=== PATIENT | female | born 2000 | race Caucasian/White ===

== ENCOUNTER 2023-11-23 10:47 | Outpatient (AMB) | payer OTHER, SELFPAY ==
--- NOTE | 2023-11-23 10:59 | A.OFFVIS_ITS ---
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 Milled Rubber Tender Required: No Accompanied by: Self / Same As Patient Allergies shellfish derived Allergy (Verified 11/23/23 11:06) Vomiting Medication List - Last Reconciled 11/23/23 by Lewis Yeboah MD enalapril-hydrochlorothiazide 5-12.5 mg 1 tab PO DAILY famotidine 20 mg PO DAILY fluoxetine 20 mg PO DAILY omeprazole 20 mg PO DAILY HPI HPI Comments History of Present Illness Details This is a 23-year-old female who presents for evaluation of joint pain. The condition started about a year ago. She has been having bilateral shoulder pain and stiffness, more severe on the left. She has morning stiffness of her shoulders lasting a few hours. She also has bilateral hip pain, the pain is on the outside of her hip as well as the groin area. This also lasts a few hours. Her shoulders are knees pop and crack. She denies any history of joint dislocations. Symptoms improved with ibuprofen 600 mg daily. She was also prescribed prednisone 40 mg daily for about 5 days which were at least 70% helpful. She was evaluated by a specialist and was found to have an old healed left clavicular fracture, MRI arthrogram left shoulder showed some capsular thickening but no synovitis or tendon tear. She was referred to PT which helped, then the pain recurred when when PT was completed. She has not noticed any swollen joints. Denies any skin rashes she is unaware of any family history of an autoimmune rheumatic disease. Denies history of DVT/PE. Denies history suggestive of uveitis or IBD. [facility] Medical History Pain in joint, multiple sites Migraine Moderate recurrent major depression Essential hypertension GERD (gastroesophageal reflux disease) Leukocytosis Surgical History H/O wisdom tooth extraction Family History Mother Thyroid disease Father Anxiety Paternal Grandmother Gout Hypertension Maternal Grandmother Lung tumor Paternal Grandfather Leukemia Maternal Grandfather COPD (chronic obstructive pulmonary disease) Maternal Uncle Multiple sclerosis Social History Alcohol intake: current Alcohol intake frequency: holidays/special occasions only Patient Tobacco Use Status: Never used Tobacco Current occupational status: employed 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 Female Reproductive History Menstrual Total pregnancies: 0 Review of Systems Const Reports fatigue and Reports headache(s) Eyes Reports itchy eyes ENT Reports dizziness and Reports headache(s) GI Reports heartburn Reports nocturia and Reports vaginal dryness Musc Reports arthralgias, Reports limited range of motion and Reports stiffness Skin/Breast Denies rash Neuro Reports dizziness and Reports headache(s) Psych Reports abnormal sleep pattern, Reports anxiety and Reports depression Endo Reports fatigue Aller/Immun Reports itchy eyes Physical Exam Vital Signs: Last Vital Signs Pulse 90 11/23/23 11:04 BP 124/70 11/23/23 11:04 Pulse Ox 98 11/23/23 11:04 Oxygen Delivery Method Room Air 11/23/23 11:04 BMI result Body Mass Index 41.9 Const General: cooperative, healthy appearing and comfortable Nutritional Appearance: obese morbidly obese Orientation/consciousness: patient oriented x3 Limitations: no limitations HEENT Head: Yes normocephalic and Yes atraumatic Mouth: moist mucous membranes Resp Effort & Inspection: normal respiratory effort and able to speak in complete sentences Auscultation: clear to auscultation bilaterally Cardio Rate: regular rate Rhythm: regular rhythm GI Palpation (GI): Soft to palpation and nontender Skin General skin exam: no rashes or lesions noted Neuro General: patient oriented x3 Extrem Other: No active synovitis both hands, wrists Normal range of motion of both elbows without pain Normal range of motion of shoulders without pain Negative empty can test bilaterally Negative speed's test bilaterally Normal nailfold capillaroscopy Bilateral groin pain with hip manipulation No knee pain with full flexion and extension bilaterally No ankle swelling or tenderness bilaterally No trochanteric bursa area tenderness Negative Fabere test Brenda test 10-14 cm Mild hyperextension of both knees Painful unable to put both palms on the floor No hyperextensible elbows Results Reviewed Results Reviewed: Labs 09/2023 WBC 13.45? ?platelets 427 (<369) BRENNAN negative? RF (positive than negative ??!) LYME SCREEN NEGATIVE CRP 15.4 (<9.0) ESR 18 TSH 2.71 Assessment & Plan Assessment & Plan (1) Pain in joint, multiple sites: Code(s): M25.50 - Pain in unspecified joint Plan: This is a 23-year-old female who presents for evaluation of multiple joint pain and stiffness. Symptoms improved with prednisone taper. Recurred when prednisone was discontinued. Will order comprehensive serology to screen for underlying autoimmune rheumatic disease. Check x-rays of involved joints. Follow-up in about 4 weeks Plan I spent 47 minutes reviewing patient's chart, evaluating patient, ordering diagnostic workup, counseling patient and documenting in the chart Orders: Orders Comprehensive Met. Panel Today M06.9 - Rheumatoid arthritis, unspecified C Reactive Protein Today M06.9 - Rheumatoid arthritis, unspecified Immunofixation Pnl, Serum Today M06.9 - Rheumatoid arthritis, unspecified Protein Electrophoresis, Serum Today M06.9 - Rheumatoid arthritis, unspecified Cyclic Citrullinated Peptide Today M06.9 - Rheumatoid arthritis, unspecified HLA B27 Today M45.9 - Ankylosing spondylitis of unspecified sites in spine Anti DNA DS Antibody Today M32.9 - Systemic lupus erythematosus, unspecified Complement C3 Today M32.9 - Systemic lupus erythematosus, unspecified UA w Microscopic Today M32.9 - Systemic lupus erythematosus, unspecified XR lumbar spine 4V min Today M25.50 - Pain in unspecified joint Complete Blood Count Auto Diff Today M06.9 - Rheumatoid arthritis, unspecified Hepatitis A,B,C Profile Today Z11.59 - Encounter for screening for other viral diseases T Spot TB Today Z11.7 - Encounter for testing for latent tuberculosis infection Rheumatoid Factor Today M06.9 - Rheumatoid arthritis, unspecified BRENNAN Reflex Titer and Pattern Today M32.9 - Systemic lupus erythematosus, u nspecified Anti Extractable Nuclear Ag Today M32.9 - Systemic lupus erythematosus, unspecified Complement C4 Today M32.9 - Systemic lupus erythematosus, unspecified Erythrocyte Sedimentation Rate Today M32.9 - Systemic lupus erythematosus, unspecified DNA Double Stranded-Crithidia Today M32.9 - Systemic lupus erythematosus, unspecified Protein Creatinine Ratio, Ur Today M32.9 - Systemic lupus erythematosus, unspecified Sjogren's Antibodies Today M32.9 - Systemic lupus erythematosus, unspecified XR hip LT min 2V Today M25.50 - Pain in unspecified joint XR hip RT min 2V Today M25.50 - Pain in unspecified joint XR sacroiliac joint min 3V Today M25.50 - Pain in unspecified joint Coding Level of Care Code New Pt Level 4 (45732) Diagnoses Pain in joint, multiple sites M25.50
[2023-11-23 11:04] VITALS: BP 124/70; PULSE 90; O2SAT 98; BMI 41.9
== END 2023-11-23 11:37 | disposition home or self-care (01) ==
PROVIDERS: PCP Family Medicine; Referring Provider Family Medicine; Visit Provider Student in an Organized Health Care Education/Training Program
DX: M25.50 Pain in unspecified joint (principal)
CPT/HCPCS: 99204

== ENCOUNTER 2023-11-23 10:47 | Outpatient (REF) | payer OTHER, SELFPAY ==
--- NOTE | ~2023-11-23 | XR_ITS ---
EXAMINATION: XR HIP, RIGHT XR HIP, LEFT CLINICAL INFORMATION: Pain in the hips. COMPARISON: None TECHNIQUE: AP and frog-leg lateral views of each hip. FINDINGS: RIGHT HIP: No fracture. Alignment is anatomic. Hip joint space is maintained. Soft tissues are unremarkable. LEFT HIP: No fracture. Alignment is anatomic. Hip joint space is maintained. Soft tissues are unremarkable. XR/XR hip LT min 2V IMPRESSION: Normal hip radiographs.
--- NOTE | ~2023-11-23 | XR_ITS ---
EXAMINATION: XR HIP, RIGHT XR HIP, LEFT CLINICAL INFORMATION: Pain in the hips. COMPARISON: None TECHNIQUE: AP and frog-leg lateral views of each hip. FINDINGS: RIGHT HIP: No fracture. Alignment is anatomic. Hip joint space is maintained. Soft tissues are unremarkable. LEFT HIP: No fracture. Alignment is anatomic. Hip joint space is maintained. Soft tissues are unremarkable. XR/XR hip RT min 2V IMPRESSION: Normal hip radiographs.
--- NOTE | ~2023-11-23 | XR_ITS ---
EXAMINATION: XR LUMBAR SPINE XR SI JOINTS CLINICAL INFORMATION: M25.50 - Pain in unspecified joint Additional Information: PT states pain in lower back and hips COMPARISON: None. TECHNIQUE: Five views of the lumbosacral spine. 3 views of the SI joints FINDINGS: Lumbar spine: Vertebral body heights are normal. No fracture or spondylolisthesis. Intervertebral disc heights are maintained without significant degenerative disc disease. Bone mineralization is normal. Soft tissues are unremarkable. SI joints: Subtle osteoarthritis is suspected in the SI joints characterized by articular sclerosis. No erosions are identified. Bone mineralization is normal. Hip joints are unremarkable. No acute osseous abnormalities. IUD is present in the central pelvis. XR/XR lumbar spine 4V min IMPRESSION: 1. No acute osseous abnormalities in the lumbar spine. 2. 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 No erosions.
--- NOTE | ~2023-11-23 | XR_ITS ---
EXAMINATION: XR LUMBAR SPINE XR SI JOINTS CLINICAL INFORMATION: M25.50 - Pain in unspecified joint Additional Information: PT states pain in lower back and hips COMPARISON: None. TECHNIQUE: Five views of the lumbosacral spine. 3 views of the SI joints FINDINGS: Lumbar spine: Vertebral body heights are normal. No fracture or spondylolisthesis. Intervertebral disc heights are maintained without significant degenerative disc disease. Bone mineralization is normal. Soft tissues are unremarkable. SI joints: Subtle osteoarthritis is suspected in the SI joints characterized by articular sclerosis. No erosions are identified. Bone mineralization is normal. Hip joints are unremarkable. No acute osseous abnormalities. IUD is present in the central pelvis. XR/XR sacroiliac joint min 3V IMPRESSION: 1. No acute osseous abnormalities in the lumbar spine. 2. 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 No erosions.
[2023-11-23 12:01] LABS: MANUAL DIFF FLAG NO
[2023-11-23 12:20] LABS: Basophils Percent Auto 0.3 % (0-2); Eosinophils Absolute Auto 0.1 X10*3/uL (0.0-0.4); Eosinophils Percent Auto 0.7 % (0-4); Hematocrit 41.5 % (37.0-47.0); Hemoglobin 13.8 g/dl (12.0-16.0); Imm Gran Abs Auto 0.04 X10*3/uL (0.00-0.03); Imm Gran Pct Auto 0.4 % (0.0-0.4); Lymphocytes Absolute Auto 3.7 X10*3/uL (1.2-4.9); Lymphocytes Percent Auto 34.7 % (20-40); Mean Corpuscular HGB Conc 33.3 g/dl (31.0-35.0); Mean Corpuscular Hemoglobin 27.8 pg (27.0-33.0); Mean Corpuscular Volume 83.7 fL (80.0-98.0); Mean Platelet Volume 8.6 fL (9.4-12.3); Monocytes Absolute Auto 0.6 X10*3/uL (0.1-1.2); Monocytes Percent Auto 5.5 % (2-11); Neutrophils Absolute Auto 6.3 x10*3/uL (2.0-8.3); Neutrophils Percent Auto 58.4 % (45-73); Platelet Count 423 X10*3/uL (160-400); Red Blood Count 4.96 X10*6/uL (4.20-5.50); Red Cell Distribution Width 12.6 % (11.0-16.0); White Blood Count 10.7 X10*3/uL (4.8-10.8)
[2023-11-23 12:49] LABS: Alanine Aminotransferase 17 U/L (0-31); Albumin Level 4.3 g/dL (3.5-5.0); Alkaline Phosphatase 62 U/L (39-117); Anion Gap 10 (12-20); Aspartate Amino Transferase 19 U/L (5-31); Bilirubin Total 0.3 mg/dL (0.0-1.0); Blood Urea Nitrogen 12 mg/dL (9-16); C Reactive Protein 1.12 mg/dL (< or = 0.50); Calcium 9.7 mg/dL (8.4-10.2); Carbon Dioxide 28 mmol/L (22-29); Chloride 106 mmol/L (96-108); Estimated Glomerular Filt Rate > 60; Glucose Random 79 mg/dL (60-115); Potassium 3.7 mmol/L (3.3-5.1); Sodium 140 mmol/L (135-145); Total Protein 7.7 g/dL (6.5-8.0)
[2023-11-23 12:56] LABS: Rheumatoid Factor < 13.0 IU/mL (<15.0)
[2023-11-23 13:00] LABS: Erythrocyte Sedimentation Rate 17 MM/HR (0-20)
[2023-11-23 13:14] LABS: HBS Num1 4.17 mIU/mL (0-7.99); HBc Num1 0.09 S/CO (0.00-0.79); HBsAGNum1 0.28 S/CO (0.00-0.99); Hepatitis A Antibody IgM 0.16 Index (0-0.79); Hepatitis B Core Antibody Nonreactive (Nonreactive); Hepatitis B Surface Antigen Negative (Negative); ~HepC Num1 0.27 S/CO (0.00-0.79); ~Hepatitis A Antibody IgM Nonreactive (Nonreactive); ~Hepatitis B Surface Antibody NONREACTIVE (Nonreactive); ~Hepatitis C Antibody Nonreactive (Nonreactive)
[2023-11-23 13:35] LABS: Appearance Urine Cloudy; Color Urine Yellow; Glucose Urine UA Negative (Negative); Leukocyte Esterase Urine Trace (Negative); Nitrite Urine Negative (Negative); PH 7.5 (5.0-9.0); Specific Gravity - Urine 1.015 (1.005-1.025); UMIC TRIGGER UA YES; Urine Blood Negative (Negative); Urine Ketones Negative (Negative); Urine Protein Negative (Neg-Trace)
[2023-11-23 13:53] LABS: Bacteria Urine 2+ (None Seen); Hyaline Casts Urine 0-2 /LPF (0-2); RBC Urine 0-2 /HPF (0-2)
[2023-11-23 14:17] LABS: Creatinine Urine 46.19 mg/dL; Total Protein Urine Random < 7 mg/dL (<12)
[2023-11-25 06:28] LABS: Complement C3 173 mg/dL (83-193)
[2023-11-25 10:54] LABS: Cyclic Citrullinated Peptide <16 UNITS
[2023-11-25 13:18] LABS: Prot Elec - Albumin 4.4 g/dL (3.8-4.8); Prot Elec - Alpha1 0.3 g/dL (0.2-0.3); Prot Elec - Alpha2 0.8 g/dL (0.5-0.9); Prot Elec - Beta 1 0.5 g/dL (0.4-0.6); Prot Elec - Beta 2 0.3 g/dL (0.2-0.5); Prot Elec - Total Protein 7.3 g/dL (6.1-8.1)
[2023-11-25 19:33] LABS: Anti Nuclear Antibody Screen NEGATIVE (NEGATIVE)
[2023-11-25 23:18] LABS: TS Negative Control Passed; TS Panel A 0; TS Panel B 0; TS Positive Control Passed; TSpotTB Negative (Negative)
[2023-11-26 13:33] LABS: Anti DNA DS Antibody 1 IU/mL; Antibody to SS-A Antigen <1.0 NEG AI (<1.0 NEG); Antibody to SS-B Antigen <1.0 NEG AI (<1.0 NEG); SM/Ribonucleoprotein Ab <1.0 NEG AI (<1.0 NEG); Smith Protein <1.0 NEG AI (<1.0 NEG)
[2023-11-26 18:03] LABS: IgA 164 mg/dL (47-310); IgG 1118 mg/dL (600-1640); IgM 136 mg/dL (50-300)
[2023-11-27 00:19] LABS: HLA B27 Negative (Negative)
[2023-11-28 00:05] LABS: DNAds, Crithidia Antibody Negative (Negative)
== END 2023-11-23 10:48 | disposition home or self-care (01) ==
LOC: HO.LAB 10:47
PROVIDERS: PCP Family Medicine; Referring Provider Family Medicine; Visit Provider Student in an Organized Health Care Education/Training Program
DX: Z11.59 Encounter for screening for other viral diseases (principal); Z11.7 Encounter for testing for latent tuberculosis infection; M06.9 Rheumatoid arthritis, unspecified; M45.9 Ankylosing spondylitis of unspecified sites in spine; M32.9 Systemic lupus erythematosus, unspecified; M25.50 Pain in unspecified joint; Z72.89 Other problems related to lifestyle
CPT/HCPCS: 36415; 72110; 72202; 73502; 80053; 81001; 82570; 82784; 84156; 84165; 85025; 85652; 86038; 86140; 86160; 86200; 86225; 86235; 86255; 86334; 86431; 86481; 86704; 86706; 86709; 86803; 86812; 87340

== ENCOUNTER 2023-12-16 07:48 | Outpatient (AMB) | payer OTHER, SELFPAY ==
--- NOTE | 2023-12-16 07:49 | MHC.OFFVIS ---
Vital Signs 12/16/23 07:50 Height 5 ft 9 in Weight 286 lb 13.142 oz BMI 42.4 BP 132/76 Blood Pressure Location Rt brachial Position Sitting Pulse 90 Pulse Source Pulse Oximeter Pulse Oximetry (%) 95 Oxygen Delivery Method Room Air Intake Visit Reasons: Joint pain Intake Note: Patient last seen 11/23/23 presents today for follow up and test results. Motor Room Controller Required: No Accompanied by: Self / Same As Patient Allergies shellfish derived Allergy (Verified 12/16/23 07:54) Vomiting Medication List - Last Reconciled 12/16/23 by Lewis Yeboah MD enalapril-hydrochlorothiazide 5-12.5 mg 1 tab PO DAILY famotidine 20 mg PO DAILY fluoxetine 20 mg PO DAILY omeprazole 20 mg PO DAILY HPI Comments Details: Patient returns for follow-up after completion of her diagnostic workup. Continues to feel about the same. Initial history: This is a 23-year-old female who presents for evaluation of joint pain. The condition started about a year ago. She has been having bilateral shoulder pain and stiffness, more severe on the left. She has morning stiffness of her shoulders lasting a few hours. She also has bilateral hip pain, the pain is on the outside of her hip as well as the groin area. This also lasts a few hours. Her shoulders are knees pop and crack. She denies any history of joint dislocations. Symptoms improved with ibuprofen 600 mg daily. She was also prescribed prednisone 40 mg daily for about 5 days which were at least 70% helpful. She was evaluated by a specialist and was found to have an old healed left clavicular fracture, MRI arthrogram left shoulder showed some capsular thickening but no synovitis or tendon tear. She was referred to PT which helped, then the pain recurred when when PT was completed. She has not noticed any swollen joints. Denies any skin rashes she is unaware of any family history of an autoimmune rheumatic disease. Denies history of DVT/PE. Denies history suggestive of uveitis or IBD. [facility] Medical History Pain in joint, multiple sites Migraine Moderate recurrent major depression Essential hypertension GERD (gastroesophageal reflux disease) Leukocytosis Surgical History H/O wisdom tooth extraction Family History Mother Thyroid disease Father Anxiety Paternal Grandmother Gout Hypertension Maternal Grandmother Lung tumor Paternal Grandfather Leukemia Maternal Grandfather COPD (chronic obstructive pulmonary disease) Maternal Uncle Multiple sclerosis Social History Alcohol intake: current Alcohol intake frequency: holidays/special occasions only Patient Tobacco Use Status: Never used Tobacco Current occupational status: employed 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 Female Reproductive History Menstrual Total pregnancies: 0 Review of Systems Musc Reports arthralgias, Reports joint swelling, Reports limited range of motion and Reports stiffness Skin/Breast Denies rash Psych Reports abnormal sleep pattern, Reports anxiety and Reports depression Physical Exam Vital Signs: Last Vital Signs Pulse 90 12/16/23 07:50 BP 132/76 12/16/23 07:50 Pulse Ox 95 12/16/23 07:50 Oxygen Delivery Method Room Air 12/16/23 07:50 BMI result Body Mass Index 42.4 Const General: cooperative, healthy appearing and comfortable Nutritional Appearance: obese morbidly obese Orientation/consciousness: patient oriented x3 Limitations: no limitations HEENT Head: Yes normocephalic and Yes atraumatic Mouth: moist mucous membranes Resp Effort & Inspection: normal respiratory effort and able to speak in complete sentences Auscultation: clear to auscultation bilaterally Cardio Rate: regular rate Rhythm: regular rhythm GI Palpation (GI): Soft to palpation and nontender Skin General skin exam: no rashes or lesions noted Neuro General: patient oriented x3 Extrem Other: No active synovitis both hands, wrists Mild right wrist pain with full flexion Normal range of motion of both elbows without pain Normal range of motion of shoulders without pain Negative empty can test bilaterally Negative speed's test bilaterally Normal nailfold capillaroscopy Bilateral groin pain with hip manipulation No knee pain with full flexion and extension bilaterally No ankle swelling or tenderness bilaterally No trochanteric bursa area tenderness Negative Fabere test Brenda test 10-14 cm Mild hyperextension of both knees Painful unable to put both palms on the floor No hyperextensible elbows Results Reviewed Results Reviewed: Labs 09/2023 WBC 13.45? ?platelets 427 (<369) BRENNAN negative? RF (positive than negative ??!) LYME SCREEN NEGATIVE CRP 15.4 (<9.0) ESR 18 TSH 2.71 Assessment & Plan Assessment & Plan (1) Pain in joint, multiple sites: Code(s): M25.50 - Pain in unspecified joint Category: Medical Plan: This is a 23-year-old female who presents for evaluation of multiple joint pain and stiffness. Symptoms improved with prednisone taper. Comprehensive serology is negative. CRP mildly elevated which can be due to obesity. Discussed with patient, at this point I do not see any evidence of an autoimmune rheumatic disease. Advised patient to take any pictures of any swollen joints. Return to clinic she has persistently swollen joints and/or prolonged morning stiffness. Follow-up as needed Plan I spent 17 minutes reviewing patient's chart, evaluating patient, counseling patient and documenting in the chart Coding Level of Care Code Est Pt Level 3 (91889) Diagnoses Pain in joint, multiple sites M25.50
[2023-12-16 07:50] VITALS: BP 132/76; PULSE 90; O2SAT 95; BMI 42.4
== END 2023-12-16 08:21 | disposition home or self-care (01) ==
PROVIDERS: PCP Family Medicine; Visit Provider Student in an Organized Health Care Education/Training Program
DX: M25.50 Pain in unspecified joint (principal)
CPT/HCPCS: 99213

== ENCOUNTER → 2023-12-16 07:48 | Outpatient (BNVA) | payer OTHER, SELFPAY | PROVIDERS: PCP Family Medicine; Visit Provider Student in an Organized Health Care Education/Training Program ==